=== PATIENT | male | born 1935 | race African-American/Black ===

== ENCOUNTER 2017-03-17 08:19 | Day surgery (SDC) | payer OTHER ==
[2017-03-16 10:33] VITALS: BMI 24.4
[2017-03-17] MEDS ORDERED: LIDOCAINE HCL/PF 2% SDV 5ML VIAL ONE (09:07)
[2017-03-17] MEDS ORDERED: PROPOFOL 20 ML ONE ×3 (09:08)
[2017-03-17 10:12] VITALS: TEMP 97.7
[2017-03-17 15:43] VITALS: BP 149/74; PULSE 55
--- NOTE | 2017-03-20 14:07 | PATH ---
Surgical Pathology Report Patient Name: NEEL DUNCAN [facility]. Rec. #: [id number] /Age/Gender: 1935 (Age: 81) / M Account: [id number] Location: [facility]-ENDOSCOPY Taken: 03/17/2017 Received: 03/17/2017 Reported: 03/20/2017 Physicians: Bhumi Plata M.D. Specimen(s) Received A: BX 2ND PORTION DUODENUM / BULB B: BX ANTRUM C: BX ILEOCECAL VALVE POLYP Clinical History Screening, loss of appetite, weight loss Gastritis, duodenitis, diverticulosis, ileocecal valve polyp, hemorrhoids Final Diagnosis A. DUODENUM, SECOND PORTION AND BULB, BIOPSY: DUODENAL MUCOSA WITH NO PATHOLOGIC CHANGES. NO HISTOLOGIC EVIDENCE OF GLUTEN SENSITIVE ENTEROPATHY (CELIAC SPRUE) IDENTIFIED. B. STOMACH, ANTRUM, BIOPSY: MODERATE CHRONIC GASTRITIS. IMMUNOSTAIN FOR H. PYLORI IS NEGATIVE. C. ILEOCECAL VALVE, BIOPSY: COLONIC MUCOSA WITH NO PATHOLOGIC CHANGES. NO ADENOMATOUS OR HYPERPLASTIC CHANGES IDENTIFIED. Electronically Signed Ayden Fam M.D. Gross Description A. Received in formalin, labeled "second portion duodenum/bulb" are three fragments of soft tissue a measuring 0.3 cm. in greatest dimension. The specimen is submitted in toto in one cassette. B. Received in formalin, labeled "antrum" are four fragments of soft tissue the measuring 0.2 cm. in greatest dimension. The specimen is submitted in toto in one cassette. C. Received in formalin, labeled "ileocecal valve polyp" are two fragments of betancourt tissue measuring 0.1 and 0.2 cm. in greatest dimension. The specimen is submitted in toto in one cassette. AF/03/17/2017 final/03/17/2017
== END 2017-03-17 11:15 | disposition home or self-care (01) ==
LOC: JASU-ENDO 08:19
PROVIDERS: ATTEND Internal Medicine Gastroenterology
PROC: 0DB98ZX Excision of Duodenum, Via Natural or Artificial Opening Endoscopic, Diagnostic (ICD-10-PCS; 2017-03-17)
PROC: 0DB68ZX Excision of Stomach, Via Natural or Artificial Opening Endoscopic, Diagnostic (ICD-10-PCS; 2017-03-17)
PROC: 0DBC8ZX Excision of Ileocecal Valve, Via Natural or Artificial Opening Endoscopic, Diagnostic (ICD-10-PCS; principal; 2017-03-17 09:00)
DX: Z12.11 Encounter for screening for malignant neoplasm of colon (principal); K63.5 Polyp of colon; K57.30 Diverticulosis of large intestine without perforation or abscess without bleeding; K29.70 Gastritis, unspecified, without bleeding; K29.80 Duodenitis without bleeding
CPT/HCPCS: 88305-TC; 88342-TC

== ENCOUNTER 2023-07-29 13:31 | Inpatient (IN) | payer OTHER ==
[2023-07-29 14:59] LABS: BASO % 0.3 % (0-2.0); EOS % 0.2 % (0-4.5); HEMATOCRIT 30.4 % (35.4-49); HEMOGLOBIN 9.5 GM/dL (11.7-16.9); LYMPH % 14.6 % (8-40); MCH 26.2 pg (25.7-33.7); MCHC 31.2 g/dl (32.0-35.9); MEAN CELL VOLUME 83.9 fl (80-96); MEAN PLT VOLUME 7.2 fl (7.5-11.1); MONO % 8.9 % (3.8-10.2); PLATELET COUNT 425 10^3/uL (134-434); RBC 3.62 M/mm3 (4.00-5.60); RDW 15.6 % (11.9-15.9); WHITE BLOOD COUNT 6.7 K/mm3 (4.0-10.0)
[2023-07-29 15:07] LABS: INR 1.17 (0.83-1.09); PROTHROMBIN TIME (PATIENT) 13.6 SEC (9.7-13.0)
[2023-07-29 15:10] LABS: ACTIVATED PTT 35.3 SECONDS (25.2-36.5)
[2023-07-29 15:34] LABS: POTASSIUM 5.4 mmol/L (3.5-5.1)
[2023-07-29 15:36] LABS: ALBUMIN 2.5 g/dl (3.4-5.0); BLOOD UREA NITROGEN 27.4 mg/dL (7-18); CALCIUM 9.5 mg/dL (8.5-10.1)
[2023-07-29 15:39] LABS: CREATININE 1.3 mg/dL (0.55-1.3)
[2023-07-29 15:41] LABS: BILIRUBIN,TOTAL 0.2 mg/dL (0.2-1); TOT PROT 7.5 g/dl (6.4-8.2)
[2023-07-29] MEDS ORDERED: LIDOCAINE 1.5%-EPINEPHRINE 1:200,000/PF 30 ML VIAL IJ ONE (16:19)
[2023-07-29] MEDS ORDERED: LIDOCAINE HCL 1%, 10 MG/ML (50 mL VIAL) SQ ONE (16:19)
[2023-07-29] MEDS ORDERED: LIDOCAINE HCL 1%, 10 MG/ML (20ML VIAL) ONE ×2 (16:20→16:21)
[2023-07-29] MEDS ORDERED: LIDOCAINE 2.5%/PRILOCAINE 2.5% 30 GRAM TUBE TP ONE (16:35)
[2023-07-29 16:44] LABS: EPI CELLS >36 /uL (0-25.1); HYALINE CASTS 95 /uL (0-3.1); PH,URINE 8.5 (5.0-8.0); URINE APPEARANCE TURBID; URINE BACTERIA >9,000 /uL (0-1359); URINE BILIRUBIN NEGATIVE (NEGATIVE); URINE COLOR YELLOW; URINE GLUCOSE (UA) NEGATIVE (NEGATIVE); URINE KETONE NEGATIVE (NEGATIVE); URINE LEUK ESTERASE 3+ (NEGATIVE); URINE NITRITE NEGATIVE (NEGATIVE); URINE PROTEIN 2+ (NEGATIVE); URINE WBC 9109 /uL (0-25.8)
[2023-07-29 17:14] LABS: URINE RBC 562.6 /uL (0-23.9)
[2023-07-29] MEDS ORDERED: LIDOCAINE 2.5%/PRILOCAINE 2.5% (5 Gram/TUBE) TP ONE (18:08)
[2023-07-29] MEDS ORDERED: CEFTRIAXONE 1,000 MG in DEXTROSE 5%-WATER - 50 ML IVPB ONE (18:59)
[2023-07-29] MEDS ORDERED: HALOPERIDOL LACTATE 5 MG/ML IM ONE (19:16)
[2023-07-29] MEDS ORDERED: HALOPERIDOL LACTATE 5 MG/ML ONE (19:21)
[2023-07-29] MEDS ORDERED: CEFTRIAXONE 1 GM/50 ML BAG ONE (20:11)
[2023-07-29] MEDS ORDERED: VALPROATE SODIUM 500 MG/5 ML VIAL IVPB ONE (20:30)
[2023-07-29] MEDS ORDERED: VALPROATE SODIUM INJECTION 500 MG in SODIUM CHLORIDE 100 ML IVPB ONE (22:15)
[2023-07-29 22:27] LABS: CALCIUM 9.2 mg/dL (8.5-10.1)
[2023-07-29 22:28] LABS: BLOOD UREA NITROGEN 26.7 mg/dL (7-18)
[2023-07-29] MEDS ORDERED: SODIUM CHLORIDE 1,000 ML IV SCH (22:30)
[2023-07-29 22:31] LABS: CREATININE 1.2 mg/dL (0.55-1.3)
[2023-07-30 08:54] LABS: BASO % 0.3 % (0-2.0); EOS % 0.5 % (0-4.5); HEMATOCRIT 28.5 % (35.4-49); HEMOGLOBIN 8.8 GM/dL (11.7-16.9); LYMPH % 32.8 % (8-40); MCH 26.1 pg (25.7-33.7); MCHC 30.9 g/dl (32.0-35.9); MEAN CELL VOLUME 84.5 fl (80-96); MEAN PLT VOLUME 7.4 fl (7.5-11.1); MONO % 13.4 % (3.8-10.2); PLATELET COUNT 356 10^3/uL (134-434); RBC 3.37 M/mm3 (4.00-5.60); RDW 15.4 % (11.9-15.9); WHITE BLOOD COUNT 6.1 K/mm3 (4.0-10.0)
[2023-07-30 09:06] LABS: POTASSIUM 4.8 mmol/L (3.5-5.1)
[2023-07-30 09:09] LABS: CALCIUM 8.8 mg/dL (8.5-10.1)
[2023-07-30 09:10] LABS: ALBUMIN 2.3 g/dl (3.4-5.0); BLOOD UREA NITROGEN 27.2 mg/dL (7-18); MAGNESIUM 2.1 mg/dL (1.8-2.4)
[2023-07-30 09:14] LABS: CREATININE 1.2 mg/dL (0.55-1.3); PHOSPHOROUS 3.3 mg/dL (2.5-4.9); TOT PROT 6.9 g/dl (6.4-8.2)
[2023-07-30 09:21] LABS: BILIRUBIN,TOTAL 0.2 mg/dL (0.2-1)
[2023-07-30] MEDS: INSULIN ASPART SLIDING SCALE (NOVOLOG) 1 VIAL SQ SCH ×3 (09:23→17:09)
[2023-07-30] MEDS: VALPROATE SODIUM 250 MG/5 ML UNIT DOSE CUP PO SCH (10:14)
[2023-07-30] MEDS: METOPROLOL TARTRATE 25 MG TABLET (FP) PO SCH (10:14)
[2023-07-30] MEDS: FINASTERIDE 5 MG TABLET (FP) PO SCH (10:14)
[2023-07-30] MEDS: MEMANTINE HCL 5 MG TABLET (UD) PO SCH (10:14)
[2023-07-30] MEDS ORDERED: CEFTRIAXONE 1 GM/50 ML BAG ONE (10:15)
[2023-07-30] MEDS: CEFTRIAXONE 1 GM in DEXTROSE 5%-WATER - 50 ML IVPB SCH (10:16)
[2023-07-31] MEDS ORDERED: METOPROLOL TARTRATE 25 MG TABLET (FP) ONE (00:28)
[2023-07-31] MEDS ORDERED: MIRTAZAPINE 15 MG TABLET (FP) ONE (00:29)
[2023-07-31] MEDS ORDERED: MELATONIN 5 MG TABLETS ONE (00:29)
[2023-07-31] MEDS ORDERED: ATORVASTATIN CA 40 MG TABLET (FP) ONE (00:29)
[2023-07-31] MEDS: VALPROATE SODIUM 250 MG/5 ML UNIT DOSE CUP PO SCH ×2 (01:00→12:13)
[2023-07-31] MEDS: ATORVASTATIN CA 40 MG TABLET (FP) PO SCH (01:00)
[2023-07-31] MEDS: MEMANTINE HCL 5 MG TABLET (UD) PO SCH ×2 (01:01→12:13)
[2023-07-31] MEDS: MELATONIN 5 MG TABLETS PO SCH (01:01)
[2023-07-31] MEDS: METOPROLOL TARTRATE 25 MG TABLET (FP) PO SCH ×2 (01:01→12:13)
[2023-07-31] MEDS: QUEtiapine FUMARATE 25 MG TABLET PO SCH (01:01)
[2023-07-31] MEDS: MIRTAZAPINE 15 MG TABLET (FP) PO SCH (01:01)
[2023-07-31] MEDS: INSULIN ASPART SLIDING SCALE (NOVOLOG) 1 VIAL SQ SCH ×4 (01:12→17:09)
[2023-07-31 08:22] LABS: BASO % 0.6 % (0-2.0); EOS % 1.2 % (0-4.5); HEMATOCRIT 28.4 % (35.4-49); HEMOGLOBIN 8.9 GM/dL (11.7-16.9); LYMPH % 37.4 % (8-40); MCH 26.4 pg (25.7-33.7); MCHC 31.2 g/dl (32.0-35.9); MEAN CELL VOLUME 84.7 fl (80-96); MEAN PLT VOLUME 7.4 fl (7.5-11.1); MONO % 11.5 % (3.8-10.2); NEUT % 49.3 % (42.8-82.8); PLATELET COUNT 370 10^3/uL (134-434); RBC 3.36 M/mm3 (4.00-5.60); RDW 14.9 % (11.9-15.9); WHITE BLOOD COUNT 4.9 K/mm3 (4.0-10.0)
[2023-07-31 08:34] LABS: POTASSIUM 4.9 mmol/L (3.5-5.1)
[2023-07-31 08:37] LABS: BLOOD UREA NITROGEN 23.1 mg/dL (7-18)
[2023-07-31 08:38] LABS: ALBUMIN 2.3 g/dl (3.4-5.0)
[2023-07-31 08:40] LABS: CREATININE 1.2 mg/dL (0.55-1.3)
[2023-07-31 08:42] LABS: BILIRUBIN,TOTAL 0.4 mg/dL (0.2-1); TOT PROT 6.9 g/dl (6.4-8.2)
[2023-07-31] MEDS ORDERED: CEFTRIAXONE 1 GM/50 ML BAG ONE (12:01)
[2023-07-31] MEDS: CEFTRIAXONE 1 GM in DEXTROSE 5%-WATER - 50 ML IVPB SCH (12:13)
[2023-07-31] MEDS: FINASTERIDE 5 MG TABLET (FP) PO SCH (12:13)
[2023-08-01] MEDS: VALPROATE SODIUM 250 MG/5 ML UNIT DOSE CUP PO SCH ×3 (02:07→23:07)
[2023-08-01] MEDS: QUEtiapine FUMARATE 25 MG TABLET PO SCH ×2 (02:08→23:07)
[2023-08-01] MEDS: ATORVASTATIN CA 40 MG TABLET (FP) PO SCH ×2 (02:08→23:07)
[2023-08-01] MEDS: MIRTAZAPINE 15 MG TABLET (FP) PO SCH ×2 (02:08→23:07)
[2023-08-01] MEDS: METOPROLOL TARTRATE 25 MG TABLET (FP) PO SCH ×3 (02:08→23:07)
[2023-08-01] MEDS: MELATONIN 5 MG TABLETS PO SCH ×2 (02:08→23:07)
[2023-08-01] MEDS: MEMANTINE HCL 5 MG TABLET (UD) PO SCH ×3 (02:08→23:07)
[2023-08-01] MEDS: INSULIN ASPART SLIDING SCALE (NOVOLOG) 1 VIAL SQ SCH ×5 (04:18→23:07)
[2023-08-01 08:05] LABS: BASO % 0.3 % (0-2.0); EOS % 1.9 % (0-4.5); HEMATOCRIT 27.8 % (35.4-49); HEMOGLOBIN 8.8 GM/dL (11.7-16.9); LYMPH % 39.8 % (8-40); MCH 26.6 pg (25.7-33.7); MCHC 31.5 g/dl (32.0-35.9); MEAN CELL VOLUME 84.6 fl (80-96); MEAN PLT VOLUME 7.5 fl (7.5-11.1); MONO % 18.7 % (3.8-10.2); NEUT % 39.3 % (42.8-82.8); PLATELET COUNT 326 10^3/uL (134-434); RBC 3.29 M/mm3 (4.00-5.60); RDW 15.2 % (11.9-15.9); WHITE BLOOD COUNT 6.2 K/mm3 (4.0-10.0)
[2023-08-01 08:36] LABS: POTASSIUM 4.9 mmol/L (3.5-5.1)
[2023-08-01 08:38] LABS: ALBUMIN 2.2 g/dl (3.4-5.0); BLOOD UREA NITROGEN 22.3 mg/dL (7-18); CALCIUM 8.9 mg/dL (8.5-10.1); MAGNESIUM 2.2 mg/dL (1.8-2.4)
[2023-08-01 08:41] LABS: PHOSPHOROUS 3.4 mg/dL (2.5-4.9)
[2023-08-01 08:42] LABS: CREATININE 1.1 mg/dL (0.55-1.3)
[2023-08-01 08:43] LABS: BILIRUBIN,TOTAL 0.1 mg/dL (0.2-1); TOT PROT 6.4 g/dl (6.4-8.2)
[2023-08-01] MEDS ORDERED: CEFTRIAXONE 1 GM/50 ML BAG ONE (11:05)
[2023-08-01] MEDS: FINASTERIDE 5 MG TABLET (FP) PO SCH (13:35)
[2023-08-01] MEDS: CEFTRIAXONE 1 GM in DEXTROSE 5%-WATER - 50 ML IVPB SCH (13:36)
[2023-08-01] MEDS: LACTATED RINGERS SOLUTION 1,000 ML/1,000 ML INFUS.BAG IV SCH (13:38)
[2023-08-02] MEDS: INSULIN ASPART SLIDING SCALE (NOVOLOG) 1 VIAL SQ SCH ×3 (08:09→22:13)
[2023-08-02] MEDS: FINASTERIDE 5 MG TABLET (FP) PO SCH (10:36)
[2023-08-02] MEDS: LACTATED RINGERS SOLUTION 1,000 ML/1,000 ML INFUS.BAG IV SCH (10:36)
[2023-08-02] MEDS: METOPROLOL TARTRATE 25 MG TABLET (FP) PO SCH ×2 (10:36→22:14)
[2023-08-02] MEDS: MEMANTINE HCL 5 MG TABLET (UD) PO SCH ×2 (10:36→22:14)
[2023-08-02] MEDS: VALPROATE SODIUM 250 MG/5 ML UNIT DOSE CUP PO SCH ×2 (10:36→22:15)
[2023-08-02] MEDS ORDERED: LACTATED RINGERS SOLUTION 1,000 ML/1,000 ML INFUS.BAG IV SCH (16:33)
[2023-08-02] MEDS ORDERED: DEXTROSE 50%-WATER 25 GM/50 ML DISP.SYRIN IVPUSH ONE (19:01)
[2023-08-02] MEDS: ATORVASTATIN CA 40 MG TABLET (FP) PO SCH (22:12)
[2023-08-02] MEDS: MIRTAZAPINE 15 MG TABLET (FP) PO SCH (22:13)
[2023-08-02] MEDS: QUEtiapine FUMARATE 25 MG TABLET PO SCH (22:14)
[2023-08-02] MEDS: MELATONIN 5 MG TABLETS PO SCH (22:14)
[2023-08-03] MEDS: INSULIN ASPART SLIDING SCALE (NOVOLOG) 1 VIAL SQ SCH ×2 (02:30→06:12)
[2023-08-03] MEDS ORDERED: DEXTROSE 50%-WATER - 25 GM/50 ML VIAL IVPUSH ONE (05:53)
[2023-08-03] MEDS: MEMANTINE HCL 5 MG TABLET (UD) PO SCH ×2 (09:20→23:50)
[2023-08-03] MEDS: METOPROLOL TARTRATE 25 MG TABLET (FP) PO SCH ×2 (09:20→22:11)
[2023-08-03] MEDS: FINASTERIDE 5 MG TABLET (FP) PO SCH (09:20)
[2023-08-03] MEDS: VALPROATE SODIUM 250 MG/5 ML UNIT DOSE CUP PO SCH ×2 (09:20→22:20)
[2023-08-03] MEDS: CLOPIDOGREL BISULFATE 75 MG TABLET (FP) PO SCH (15:26)
[2023-08-03 16:52] VITALS: RESP 18
[2023-08-03] MEDS: MELATONIN 5 MG TABLETS PO SCH (22:11)
[2023-08-03] MEDS: QUEtiapine FUMARATE 25 MG TABLET PO SCH (22:12)
[2023-08-03] MEDS: MIRTAZAPINE 15 MG TABLET (FP) PO SCH (22:12)
[2023-08-03] MEDS: SENNOSIDES 8.6MG TABLET (FP) PO SCH (22:13)
[2023-08-03] MEDS: ATORVASTATIN CA 40 MG TABLET (FP) PO SCH (22:13)
[2023-08-04] MEDS: VALPROATE SODIUM 250 MG/5 ML UNIT DOSE CUP PO SCH ×2 (10:26→22:02)
[2023-08-04] MEDS: FINASTERIDE 5 MG TABLET (FP) PO SCH (10:26)
[2023-08-04] MEDS: FAMOTIDINE 20 MG TABLET PO SCH (10:26)
[2023-08-04] MEDS: METOPROLOL TARTRATE 25 MG TABLET (FP) PO SCH ×2 (10:26→22:05)
[2023-08-04] MEDS: CLOPIDOGREL BISULFATE 75 MG TABLET (FP) PO SCH (10:26)
[2023-08-04] MEDS: MEMANTINE HCL 5 MG TABLET (UD) PO SCH ×2 (10:27→22:08)
[2023-08-04] MEDS: ASCORBIC ACID 500 MG TABLET (FP) PO SCH (10:27)
[2023-08-04 13:53] LABS: HEMOGLOBIN 8.8 GM/dL (11.7-16.9); MCH 25.7 pg (25.7-33.7); MCHC 30.3 g/dl (32.0-35.9); MEAN CELL VOLUME 84.8 fl (80-96); MEAN PLT VOLUME 7.5 fl (7.5-11.1); PLATELET COUNT 281 10^3/uL (134-434); RBC 3.42 M/mm3 (4.00-5.60); RDW 15.9 % (11.9-15.9); WHITE BLOOD COUNT 4.7 K/mm3 (4.0-10.0)
[2023-08-04 14:21] LABS: POTASSIUM 4.6 mmol/L (3.5-5.1)
[2023-08-04 14:23] LABS: CALCIUM 8.3 mg/dL (8.5-10.1)
[2023-08-04 14:24] LABS: BLOOD UREA NITROGEN 15.9 mg/dL (7-18)
[2023-08-04 14:27] LABS: CREATININE 1.2 mg/dL (0.55-1.3)
[2023-08-04 14:58] VITALS: BMI 18.8
[2023-08-04] MEDS: ATORVASTATIN CA 40 MG TABLET (FP) PO SCH (22:04)
[2023-08-04] MEDS: SENNOSIDES 8.6MG TABLET (FP) PO SCH (22:05)
[2023-08-04] MEDS: QUEtiapine FUMARATE 25 MG TABLET PO SCH (22:06)
[2023-08-04] MEDS: MIRTAZAPINE 15 MG TABLET (FP) PO SCH (22:07)
[2023-08-04] MEDS: MELATONIN 5 MG TABLETS PO SCH (22:10)
[2023-08-05] MEDS: ASCORBIC ACID 500 MG TABLET (FP) PO SCH (10:22)
[2023-08-05] MEDS: METOPROLOL TARTRATE 25 MG TABLET (FP) PO SCH ×2 (10:22→22:17)
[2023-08-05] MEDS: FAMOTIDINE 20 MG TABLET PO SCH (10:22)
[2023-08-05] MEDS: CLOPIDOGREL BISULFATE 75 MG TABLET (FP) PO SCH (10:22)
[2023-08-05] MEDS: MEMANTINE HCL 5 MG TABLET (UD) PO SCH ×2 (10:23→22:20)
[2023-08-05] MEDS: VALPROATE SODIUM 250 MG/5 ML UNIT DOSE CUP PO SCH ×2 (10:23→22:18)
[2023-08-05] MEDS: FINASTERIDE 5 MG TABLET (FP) PO SCH (10:23)
[2023-08-05] MEDS: QUEtiapine FUMARATE 25 MG TABLET PO SCH (22:16)
[2023-08-05] MEDS: SENNOSIDES 8.6MG TABLET (FP) PO SCH (22:17)
[2023-08-05] MEDS: MELATONIN 5 MG TABLETS PO SCH (22:18)
[2023-08-05] MEDS: ATORVASTATIN CA 40 MG TABLET (FP) PO SCH (22:18)
[2023-08-05] MEDS: MIRTAZAPINE 15 MG TABLET (FP) PO SCH (22:19)
[2023-08-06 08:38] LABS: BASO % 0.7 % (0-2.0); HEMATOCRIT 31.5 % (35.4-49); HEMOGLOBIN 9.7 GM/dL (11.7-16.9); LYMPH % 49.8 % (8-40); MCH 26.4 pg (25.7-33.7); MCHC 30.9 g/dl (32.0-35.9); MEAN CELL VOLUME 85.5 fl (80-96); MEAN PLT VOLUME 7.5 fl (7.5-11.1); MONO % 9.7 % (3.8-10.2); NEUT % 36.8 % (42.8-82.8); PLATELET COUNT 276 10^3/uL (134-434); RBC 3.68 M/mm3 (4.00-5.60); RDW 16.4 % (11.9-15.9); WHITE BLOOD COUNT 3.9 K/mm3 (4.0-10.0)
[2023-08-06 08:43] LABS: POTASSIUM 4.5 mmol/L (3.5-5.1)
[2023-08-06 08:44] LABS: BLOOD UREA NITROGEN 17.5 mg/dL (7-18)
[2023-08-06 08:47] LABS: CREATININE 1.3 mg/dL (0.55-1.3)
[2023-08-06] MEDS: FINASTERIDE 5 MG TABLET (FP) PO SCH (10:46)
[2023-08-06] MEDS: CLOPIDOGREL BISULFATE 75 MG TABLET (FP) PO SCH (10:46)
[2023-08-06] MEDS: ASCORBIC ACID 500 MG TABLET (FP) PO SCH (10:46)
[2023-08-06] MEDS: METOPROLOL TARTRATE 25 MG TABLET (FP) PO SCH (10:46)
[2023-08-06] MEDS: MEMANTINE HCL 5 MG TABLET (UD) PO SCH (10:46)
[2023-08-06] MEDS: FAMOTIDINE 20 MG TABLET PO SCH (10:46)
[2023-08-06] MEDS: VALPROATE SODIUM 250 MG/5 ML UNIT DOSE CUP PO SCH (10:47)
[2023-08-06 15:49] VITALS: BP 127/75; PULSE 65; TEMP 97.9
== END 2023-08-06 16:35 | DRG 312 ==
LOC: JER 13:31 → JERBED 18:58 → OBSVTOIN 08-01 13:17 → J5S 08-02 15:38 → J8W 08-03 18:42
PROVIDERS: ADMIT Internal Medicine; ATTEND Internal Medicine
PROC: 0HQ1XZZ Repair Face Skin, External Approach (ICD-10-PCS; principal; 2023-07-29)
DX: R55 Syncope and collapse (principal); U07.1 COVID-19; G45.0 Vertebro-basilar artery syndrome; R64 Cachexia; Z68.1 Body mass index [BMI] 19.9 or less, adult; F03.90 Unspecified dementia, unspecified severity, without behavioral disturbance, psychotic disturbance, mood disturbance, and anxiety; I12.9 Hypertensive chronic kidney disease with stage 1 through stage 4 chronic kidney disease, or unspecified chronic kidney disease; E11.22 Type 2 diabetes mellitus with diabetic chronic kidney disease; N18.9 Chronic kidney disease, unspecified; E78.5 Hyperlipidemia, unspecified; S01.81XA Laceration without foreign body of other part of head, initial encounter; W19.XXXA Unspecified fall, initial encounter; Y93.9 Activity, unspecified; Y92.89 Other specified places as the place of occurrence of the external cause; Y99.9 Unspecified external cause status; N40.0 Benign prostatic hyperplasia without lower urinary tract symptoms; I25.10 Atherosclerotic heart disease of native coronary artery without angina pectoris; Z95.5 Presence of coronary angioplasty implant and graft; K21.9 Gastro-esophageal reflux disease without esophagitis
CPT/HCPCS: 36415; 70450-TC; 70486-TC; 71045-TC-FY; 72125-TC; 72170-TC-FY; 80048; 80053; 80164; 81003; 82550; 82607; 82962; 83735; 84100; 84439; 84443; 84484; 85025; 85027; 85610; 85730; 86850; 86900; 86901; 87086; 87186; 87635; 93005; 93010; 93306-TC; 97116-GP; 97161-GP; 99285-25; G0378

== ENCOUNTER 2023-12-15 12:56 | Inpatient (IN) | payer OTHER ==
[2023-12-15 14:34] LABS: BASO % 0.5 % (0-2.0); HEMATOCRIT 38.3 % (35.4-49); HEMOGLOBIN 12.8 GM/dL (11.7-16.9); LYMPH % 51.4 % (8-40); MCH 28.8 pg (25.7-33.7); MCHC 33.4 g/dl (32.0-35.9); MEAN CELL VOLUME 86.2 fl (80-96); MEAN PLT VOLUME 8.5 fl (7.5-11.1); MONO % 13.7 % (3.8-10.2); NEUT % 31.4 % (42.8-82.8); PLATELET COUNT 161 10^3/uL (134-434); RBC 4.44 M/mm3 (4.00-5.60); RDW 14.3 % (11.9-15.9); WHITE BLOOD COUNT 4.9 K/mm3 (4.0-10.0)
[2023-12-15 14:40] LABS: INR 1.05 (0.83-1.09); PROTHROMBIN TIME (PATIENT) 11.8 SEC (9.7-13.0)
[2023-12-15 14:43] LABS: ACTIVATED PTT 36.8 SECONDS (25.2-36.5)
[2023-12-15 14:48] LABS: CHLORIDE 104 mmol/L (98-107); SODIUM 134 mmol/L (136-145)
[2023-12-15 14:50] LABS: ALBUMIN 2.8 g/dl (3.4-5.0); BLOOD UREA NITROGEN 30.5 mg/dL (7-18); CO2 30 mmol/L (21-32); GLUCOSE,RANDOM 62 mg/dL (74-106); MAGNESIUM 2.1 mg/dL (1.8-2.4)
[2023-12-15 14:53] LABS: CREATININE 1.3 mg/dL (0.55-1.3); SGOT/AST 117 U/L (15-37)
[2023-12-15] MEDS ORDERED: DEXTROSE 50%-WATER 25 GM/50 ML DISP.SYRIN ONE (14:54)
[2023-12-15 14:55] LABS: TOT PROT 7.6 g/dl (6.4-8.2)
[2023-12-15 14:56] LABS: ALK PHOS 96 U/L (45-117)
[2023-12-15] MEDS: DEXTROSE 50%-WATER - 25 GM/50 ML VIAL IVPUSH ONE (15:00)
[2023-12-15 15:01] LABS: BILIRUBIN,TOTAL 0.3 mg/dL (0.2-1)
[2023-12-15 15:10] LABS: ANION GAP 0 mmol/L (4-13); SGPT/ALT 46 U/L (13-61)
[2023-12-15 17:08] LABS: POTASSIUM 5.2 mmol/L (3.5-5.1)
[2023-12-15 17:10] LABS: ALBUMIN 2.8 g/dl (3.4-5.0); CALCIUM 9.2 mg/dL (8.5-10.1)
[2023-12-15 17:11] LABS: BLOOD UREA NITROGEN 30.3 mg/dL (7-18)
[2023-12-15 17:14] LABS: CREATININE 1.3 mg/dL (0.55-1.3)
[2023-12-15 17:15] LABS: TOT PROT 6.5 g/dl (6.4-8.2)
[2023-12-15 17:16] LABS: BILIRUBIN,TOTAL 0.4 mg/dL (0.2-1)
[2023-12-15 18:59] LABS: EPI CELLS 2 /uL (0-25.1); HYALINE CASTS 2 /uL (0-3.1); PH,URINE 7.5 (5.0-8.0); URINE APPEARANCE CLEAR; URINE BACTERIA 6385 /uL (0-1359); URINE BILIRUBIN NEGATIVE (NEGATIVE); URINE COLOR YELLOW; URINE GLUCOSE (UA) NEGATIVE (NEGATIVE); URINE KETONE NEGATIVE (NEGATIVE); URINE LEUK ESTERASE 3+ (NEGATIVE); URINE NITRITE POSITIVE (NEGATIVE); URINE PROTEIN NEGATIVE (NEGATIVE); URINE RBC 236 /uL (0-23.9); URINE WBC 195 /uL (0-25.8)
[2023-12-15] MEDS: CEFTRIAXONE 1 GM in DEXTROSE 5%-WATER - 50 ML IVPB ONE (22:20)
[2023-12-15] MEDS: METOPROLOL TARTRATE 25 MG TABLET (FP) PO SCH (22:35)
[2023-12-15] MEDS: VALPROATE SODIUM 250 MG/5 ML UNIT DOSE CUP PO SCH (22:35)
[2023-12-15] MEDS: MEMANTINE HCL 5 MG TABLET (UD) PO SCH (22:35)
[2023-12-15] MEDS: ATORVASTATIN CA 40 MG TABLET (FP) PO SCH (22:35)
[2023-12-15] MEDS: QUEtiapine FUMARATE 25 MG TABLET PO SCH (22:35)
[2023-12-15 23:54] VITALS: BMI 20.1
[2023-12-16] MEDS ORDERED: BISACODYL 10 MG SUPP.RECT RC PRN (02:28)
[2023-12-16 05:57] VITALS: RESP 18
[2023-12-16 08:58] LABS: BASO % 0.4 % (0-2.0); EOS % 2.1 % (0-4.5); HEMATOCRIT 37.1 % (35.4-49); HEMOGLOBIN 11.9 GM/dL (11.7-16.9); MCH 27.9 pg (25.7-33.7); MEAN CELL VOLUME 87.2 fl (80-96); MEAN PLT VOLUME 8.7 fl (7.5-11.1); MONO % 11.6 % (3.8-10.2); NEUT % 57.9 % (42.8-82.8); PLATELET COUNT 144 10^3/uL (134-434); RBC 4.25 M/mm3 (4.00-5.60); RDW 14.1 % (11.9-15.9); WHITE BLOOD COUNT 5.6 K/mm3 (4.0-10.0)
[2023-12-16 08:59] LABS: POTASSIUM 4.9 mmol/L (3.5-5.1)
[2023-12-16 09:01] LABS: ALBUMIN 2.9 g/dl (3.4-5.0); CALCIUM 9.4 mg/dL (8.5-10.1)
[2023-12-16 09:02] LABS: BLOOD UREA NITROGEN 29.1 mg/dL (7-18); MAGNESIUM 1.9 mg/dL (1.8-2.4)
[2023-12-16 09:04] LABS: PHOSPHOROUS 3.8 mg/dL (2.5-4.9)
[2023-12-16 09:05] LABS: CREATININE 1.2 mg/dL (0.55-1.3)
[2023-12-16 09:06] LABS: BILIRUBIN,TOTAL 0.4 mg/dL (0.2-1); TOT PROT 6.5 g/dl (6.4-8.2)
[2023-12-16] MEDS: CLOPIDOGREL BISULFATE 75 MG TABLET (FP) PO SCH (09:29)
[2023-12-16] MEDS: CEFTRIAXONE 1 GM in DEXTROSE 5%-WATER - 50 ML IVPB SCH (09:29)
[2023-12-16] MEDS: ASPIRIN COATED 81 MG TABLET.EC PO SCH (09:29)
[2023-12-16] MEDS: FAMOTIDINE 20 MG TABLET PO SCH (09:29)
[2023-12-16] MEDS: FINASTERIDE 5 MG TABLET (FP) PO SCH (09:29)
[2023-12-16] MEDS: PANTOPRAZOLE 40 MG TABLET PO SCH (09:29)
[2023-12-16] MEDS ORDERED: ENOXAPARIN NA (PORCINE) 40 MG/0.4 ML DISP.SYRIN SQ SCH (10:00)
[2023-12-16] MEDS ORDERED: CEFTRIAXONE 1,000 MG in DEXTROSE 5%-WATER - 50 ML IVPB SCH (10:00)
[2023-12-16] MEDS: ASPIRIN 81 MG CHEWABLE TABLETS PO SCH (11:05)
[2023-12-16] MEDS: MIRTAZAPINE 15 MG TABLET (FP) PO SCH (22:04)
[2023-12-16] MEDS: SENNOSIDES 8.6MG TABLET (FP) PO SCH (22:11)
[2023-12-16] MEDS: HEPARIN NA (PORCINE) 5,000 UNITS/ML 1ML VIAL SQ SCH (22:13)
[2023-12-17] MEDS: SODIUM CHLORIDE 250 ML IV STA (07:52)
[2023-12-18] MEDS: DEXTROSE 4 GM TAB.CHEW PO PRN (06:56)
[2023-12-18] MEDS: CEFUROXIME AXETIL 250 MG TABLET PO SCH (12:50)
[2023-12-19 23:24] VITALS: BP 137/53; PULSE 64; TEMP 98.4
== END 2023-12-20 02:00 | DRG 689 ==
LOC: JER 12:56 → JERBED 19:40 → J8W 20:19
PROVIDERS: ADMIT Internal Medicine; ATTEND Nurse Practitioner Acute Care
DX: N39.0 Urinary tract infection, site not specified (principal); G93.41 Metabolic encephalopathy; R53.2 Functional quadriplegia; I25.10 Atherosclerotic heart disease of native coronary artery without angina pectoris; N40.0 Benign prostatic hyperplasia without lower urinary tract symptoms; E11.649 Type 2 diabetes mellitus with hypoglycemia without coma; F32.A Depression, unspecified; K59.00 Constipation, unspecified; R29.6 Repeated falls; G30.9 Alzheimer's disease, unspecified; F02.80 Dementia in other diseases classified elsewhere, unspecified severity, without behavioral disturbance, psychotic disturbance, mood disturbance, and anxiety; K21.9 Gastro-esophageal reflux disease without esophagitis; B95.7 Other staphylococcus as the cause of diseases classified elsewhere; I12.9 Hypertensive chronic kidney disease with stage 1 through stage 4 chronic kidney disease, or unspecified chronic kidney disease; E11.22 Type 2 diabetes mellitus with diabetic chronic kidney disease; N18.9 Chronic kidney disease, unspecified; Z95.5 Presence of coronary angioplasty implant and graft
CPT/HCPCS: 0241U-QW; 36415; 70450-TC; 71045-TC-FY; 80053; 80061; 80164; 81003; 82962; 83036; 83735; 84100; 84439; 84443; 84484; 85025; 85610; 85730; 86850; 86900; 86901; 87086; 87186; 93005; 93010; 97116-GP; 97161-GP; 99285-25; J1644

== ENCOUNTER 2024-04-01 20:57 | Emergency (ER) | payer OTHER ==
[2024-04-01 21:14] VITALS: TEMP 98.2; BMI 17.4
[2024-04-02 00:31] LABS: BASO % 0.4 % (0-2.0); EOS % 5.3 % (0-4.5); HEMATOCRIT 40.5 % (35.4-49); HEMOGLOBIN 12.9 GM/dL (11.7-16.9); LYMPH % 35.7 % (8-40); MCH 27.9 pg (25.7-33.7); MCHC 31.9 g/dl (32.0-35.9); MEAN CELL VOLUME 87.3 fl (80-96); MEAN PLT VOLUME 8.4 fl (7.5-11.1); MONO % 11.2 % (3.8-10.2); NEUT % 47.4 % (42.8-82.8); PLATELET COUNT 183 10^3/uL (134-434); RBC 4.64 M/mm3 (4.00-5.60); RDW 14.7 % (11.9-15.9); WHITE BLOOD COUNT 5.8 K/mm3 (4.0-10.0)
[2024-04-02 00:57] LABS: POTASSIUM 5.4 mmol/L (3.5-5.1)
[2024-04-02 00:59] LABS: BLOOD UREA NITROGEN 30.3 mg/dL (7-18)
[2024-04-02 01:02] LABS: CREATININE 1.3 mg/dL (0.55-1.3)
[2024-04-02 02:12] VITALS: BP 160/98; PULSE 66; RESP 16
== END 2024-04-02 02:30 ==
LOC: JER 20:57
DX: Z04.3 Encounter for examination and observation following other accident (principal); W19.XXXA Unspecified fall, initial encounter
CPT/HCPCS: 36415; 70450-TC; 71045-TC-FY; 72125-TC; 72170-TC-FY; 80048; 80164; 82550; 84484; 85025; 93005; 93010; 99285-25

== ENCOUNTER 2024-11-15 15:06 | Inpatient (IN) | payer OTHER ==
[2024-11-15 16:08] LABS: ABSOLUTE IMMATURE GRANULOCYTES 0.01 x10^3/uL (0.0-0.031); BASOPHILS # 0.02 x10^3/uL (0.01-0.08); EOSINOPHIL % 4.5 % (0.8-7.0); EOSINOPHILS # 0.31 x10^3/uL (0.04-0.54); HEMATOCRIT 41.4 % (40.1-51.0); HEMOGLOBIN 12.5 g/dL (13.7-17.5); MCHC 30.2 g/dl (32.3-36.5); MEAN CELL VOLUME 89.8 fl (79.0-92.2); MONOCYTE # 1.04 x10^3/uL (0.30-0.82); PLATELET COUNT 162 x10^3/uL (163-337); RDW 13.6 % (12.6-16.6)
[2024-11-15 16:22] LABS: INR 1.06 (0.83-1.09); PROTHROMBIN TIME (PATIENT) 11.5 SEC (9.7-13.0)
[2024-11-15 16:40] LABS: CHLORIDE 108 mmol/L (98-107); SODIUM 138 mmol/L (136-145)
[2024-11-15 16:42] LABS: ALBUMIN 2.8 g/dl (3.4-5.0); BLOOD UREA NITROGEN 22.6 mg/dL (7-18); CALCIUM 9.1 mg/dL (8.5-10.1); CO2 25 mmol/L (21-32); GLUCOSE,RANDOM 171 mg/dL (74-106)
[2024-11-15 16:45] LABS: CREATININE 1.7 mg/dL (0.55-1.3); SGOT/AST 58 U/L (15-37); SGPT/ALT 16 U/L (13-61)
[2024-11-15 16:46] LABS: PHOSPHOROUS 3.9 mg/dL (2.5-4.9)
[2024-11-15 16:47] LABS: BILIRUBIN,TOTAL 0.4 mg/dL (0.2-1); TOT PROT 7.1 g/dl (6.4-8.2)
[2024-11-15 16:48] LABS: ALK PHOS 91 U/L (45-117)
[2024-11-15 16:52] LABS: ANION GAP 5 mmol/L (4-13); POTASSIUM 6.1 mmol/L (3.5-5.1)
[2024-11-15 17:06] LABS: URINE APPEARANCE CLEAR; URINE BILIRUBIN NEGATIVE (NEGATIVE); URINE COLOR YELLOW; URINE GLUCOSE (UA) NEGATIVE (NEGATIVE); URINE KETONE NEGATIVE (NEGATIVE); URINE LEUK ESTERASE NEGATIVE (NEGATIVE); URINE NITRITE NEGATIVE (NEGATIVE); URINE PROTEIN TRACE (NEGATIVE)
[2024-11-15] MEDS: SODIUM CHLORIDE 500 ML IV STA (18:13)
[2024-11-15] MEDS ORDERED: CEFTRIAXONE 1 G/50 ML PREMIX 50 ML IVPB ONE (19:47)
[2024-11-15] MEDS: CEFTRIAXONE 1 GM in DEXTROSE 5%-WATER - 100 ML IVPB ONE (19:50)
[2024-11-15 19:56] LABS: POTASSIUM 4.8 mmol/L (3.5-5.1)
[2024-11-15 19:57] LABS: CALCIUM 9.5 mg/dL (8.5-10.1)
[2024-11-15 19:58] LABS: BLOOD UREA NITROGEN 22.1 mg/dL (7-18)
[2024-11-15 20:01] LABS: CREATININE 1.5 mg/dL (0.55-1.3)
[2024-11-15] MEDS ORDERED: BISACODYL 10 MG SUPP.RECT RC PRN (21:53)
[2024-11-15] MEDS ORDERED: DEXTROSE 4 GM TAB.CHEW PO PRN (21:53)
[2024-11-15] MEDS ORDERED: PATIENT'S OWN MEDICATION (NON-FORMULARY) (Mirtazapine [Mirtazapine] 7.5 MG Tablet) PO SCH (22:00)
[2024-11-15] MEDS ORDERED: PATIENT'S OWN MEDICATION (NON-FORMULARY) (Valproic Acid (As Sodium Salt) [Valproic Acid] 5 PO SCH (22:00)
[2024-11-15] MEDS ORDERED: PATIENT'S OWN MEDICATION (NON-FORMULARY) (Melatonin [Melatonin] 10 MG Capsule) PO SCH (22:00)
[2024-11-15] MEDS: ATORVASTATIN CA 40 MG TABLET (FP) PO SCH (23:36)
[2024-11-15] MEDS: METOPROLOL TARTRATE 25 MG TABLET (FP) PO SCH (23:36)
[2024-11-15] MEDS: MEMANTINE HCL 5 MG TABLET (UD) PO SCH (23:37)
[2024-11-15] MEDS: VALPROATE SODIUM 250 MG/5 ML UNIT DOSE CUP PO SCH (23:37)
[2024-11-15] MEDS: SENNOSIDES 8.6MG TABLET (FP) PO SCH (23:37)
[2024-11-15] MEDS: SODIUM CHLORIDE 1,000 ML IV SCH (23:55)
[2024-11-16 00:46] VITALS: BMI 22.2
[2024-11-16 08:48] LABS: HEMATOCRIT 40.8 % (40.1-51.0); HEMOGLOBIN 12.2 g/dL (13.7-17.5); MCHC 29.9 g/dl (32.3-36.5); MEAN CELL VOLUME 89.9 fl (79.0-92.2); MEAN PLT VOLUME 9.9 fl (9.4-12.4); PLATELET COUNT 171 x10^3/uL (163-337); RDW 13.5 % (12.6-16.6)
[2024-11-16] MEDS: FINASTERIDE 5 MG TABLET (FP) PO SCH (09:39)
[2024-11-16 09:40] LABS: CALCIUM 9.6 mg/dL (8.5-10.1)
[2024-11-16] MEDS: ASCORBIC ACID 500 MG TABLET (FP) PO SCH (09:40)
[2024-11-16] MEDS: FAMOTIDINE 20 MG TABLET PO SCH (09:40)
[2024-11-16] MEDS: PANTOPRAZOLE 40 MG TABLET PO SCH (09:40)
[2024-11-16 09:41] LABS: BLOOD UREA NITROGEN 21.8 mg/dL (7-18)
[2024-11-16 09:44] LABS: CREATININE 1.6 mg/dL (0.55-1.3)
[2024-11-16 09:45] LABS: BILIRUBIN,TOTAL 0.4 mg/dL (0.2-1)
[2024-11-16] MEDS ORDERED: PATIENT'S OWN MEDICATION (NON-FORMULARY) (Ascorbic Acid/Ascorbate Sodium [Vitamin C 500 Mg PO SCH (10:00)
[2024-11-16] MEDS ORDERED: CLOPIDOGREL BISULFATE 75 MG TABLET (FP) PO SCH (10:00)
[2024-11-16] MEDS ORDERED: ASPIRIN 81 MG CHEWABLE TABLETS PO SCH (10:00)
[2024-11-16] MEDS: MELATONIN 5 MG TABLETS PO SCH (23:03)
[2024-11-16] MEDS: MIRTAZAPINE 15 MG TABLET (FP) PO SCH (23:03)
[2024-11-17 08:12] LABS: HEMATOCRIT 41.4 % (40.1-51.0); HEMOGLOBIN 12.3 g/dL (13.7-17.5); MCHC 29.7 g/dl (32.3-36.5); MEAN CELL VOLUME 88.8 fl (79.0-92.2); MEAN PLT VOLUME 9.8 fl (9.4-12.4); PLATELET COUNT 169 x10^3/uL (163-337); RDW 13.4 % (12.6-16.6)
[2024-11-17 08:35] LABS: POTASSIUM 4.7 mmol/L (3.5-5.1)
[2024-11-17 08:39] LABS: ALBUMIN 2.9 g/dl (3.4-5.0); BLOOD UREA NITROGEN 19.1 mg/dL (7-18); CALCIUM 9.6 mg/dL (8.5-10.1)
[2024-11-17 08:43] LABS: CREATININE 1.6 mg/dL (0.55-1.3)
[2024-11-17 08:44] LABS: BILIRUBIN,TOTAL 0.4 mg/dL (0.2-1); TOT PROT 6.8 g/dl (6.4-8.2)
[2024-11-17] MEDS: SODIUM CHLORIDE 1,000 ML IV SCH (17:24)
[2024-11-17 19:24] LABS: EPI CELLS 9 /uL (0-25.1); HYALINE CASTS 1 /uL (0-3.1); URINE APPEARANCE TURBID; URINE BACTERIA 1 /uL (0-1359); URINE BILIRUBIN NEGATIVE (NEGATIVE); URINE COLOR ORANGE; URINE GLUCOSE (UA) NEGATIVE (NEGATIVE); URINE KETONE NEGATIVE (NEGATIVE); URINE LEUK ESTERASE 2+ (NEGATIVE); URINE NITRITE NEGATIVE (NEGATIVE); URINE PROTEIN 1+ (NEGATIVE)
[2024-11-17 22:07] VITALS: TEMP 98.6
[2024-11-18 08:08] LABS: HEMATOCRIT 39.3 % (40.1-51.0); HEMOGLOBIN 11.9 g/dL (13.7-17.5); MCHC 30.3 g/dl (32.3-36.5); MEAN CELL VOLUME 88.9 fl (79.0-92.2); MEAN PLT VOLUME 9.8 fl (9.4-12.4); PLATELET COUNT 180 x10^3/uL (163-337); RDW 13.3 % (12.6-16.6)
[2024-11-18 08:10] LABS: ABSOLUTE IMMATURE GRANULOCYTES 0.03 x10^3/uL (0.0-0.031); BASOPHILS # 0.02 x10^3/uL (0.01-0.08); EOSINOPHIL % 5.2 % (0.8-7.0); EOSINOPHILS # 0.28 x10^3/uL (0.04-0.54); HEMOGLOBIN 11.8 g/dL (13.7-17.5); MCHC 29.5 g/dl (32.3-36.5); MEAN CELL VOLUME 89.1 fl (79.0-92.2); MEAN PLT VOLUME 10.1 fl (9.4-12.4); MONOCYTE # 0.86 x10^3/uL (0.30-0.82); MONOCYTE % 15.9 % (5.3-12.2); PLATELET COUNT 185 x10^3/uL (163-337); RDW 13.2 % (12.6-16.6)
[2024-11-18 08:27] LABS: POTASSIUM 4.8 mmol/L (3.5-5.1)
[2024-11-18 08:33] LABS: ALBUMIN 2.9 g/dl (3.4-5.0); BLOOD UREA NITROGEN 17.4 mg/dL (7-18); CALCIUM 9.6 mg/dL (8.5-10.1)
[2024-11-18 08:35] LABS: CREATININE 1.5 mg/dL (0.55-1.3)
[2024-11-18 08:37] LABS: BILIRUBIN,TOTAL 0.4 mg/dL (0.2-1); TOT PROT 6.8 g/dl (6.4-8.2)
[2024-11-18] MEDS: VALPROATE SODIUM 250 MG/5 ML UNIT DOSE CUP PO SCH (10:28)
[2024-11-18] MEDS: amLODIPine BESYLATE 2.5 MG TABLET (FP) PO SCH (12:27)
[2024-11-18 14:14] VITALS: RESP 20
[2024-11-18 14:15] VITALS: PULSE 70
[2024-11-18] MEDS: amLODIPine BESYLATE 2.5 MG TABLET (FP) PO ONE (14:38)
[2024-11-18 15:39] VITALS: BP 111/70
== END 2024-11-18 17:47 | DRG 70 ==
LOC: JER 15:06 → JERBED 19:51 → J8W 22:12
PROVIDERS: ADMIT Internal Medicine; ATTEND Nurse Practitioner Family
DX: G93.41 Metabolic encephalopathy (principal); R53.2 Functional quadriplegia; E44.0 Moderate protein-calorie malnutrition; F02.818 Dementia in other diseases classified elsewhere, unspecified severity, with other behavioral disturbance; I69.351 Hemiplegia and hemiparesis following cerebral infarction affecting right dominant side; R41.82 Altered mental status, unspecified; T42.6X5A Adverse effect of other antiepileptic and sedative-hypnotic drugs, initial encounter; I25.10 Atherosclerotic heart disease of native coronary artery without angina pectoris; D64.9 Anemia, unspecified; G30.9 Alzheimer's disease, unspecified; E78.5 Hyperlipidemia, unspecified; I12.9 Hypertensive chronic kidney disease with stage 1 through stage 4 chronic kidney disease, or unspecified chronic kidney disease; N18.9 Chronic kidney disease, unspecified; E11.22 Type 2 diabetes mellitus with diabetic chronic kidney disease; R13.10 Dysphagia, unspecified; I73.9 Peripheral vascular disease, unspecified; N40.0 Benign prostatic hyperplasia without lower urinary tract symptoms; K21.9 Gastro-esophageal reflux disease without esophagitis; Z68.28 Body mass index [BMI] 28.0-28.9, adult
CPT/HCPCS: 0241U-QW; 36415; 70450-TC; 70496-TC; 70498-TC; 71046-TC-FY; 76775-TC; 76856-TC; 80048; 80053; 80164; 81003; 83735; 84100; 84439; 84443; 84484; 85025; 85027; 85610; 85730; 87086; 93005; 93010; 99291; Q9967